=== PATIENT | female | born 1995 | race Caucasian/White ===

== ENCOUNTER → 2022-12-13 | Outpatient (CLI) | payer MEDICAID, SELFPAY | END | disposition home or self-care (01) | LOC: LABSPEC 15:38 | PROVIDERS: PCP Family Medicine; Referring Provider Obstetrics & Gynecology; Visit Provider Obstetrics & Gynecology | DX: O09.90 Supervision of high risk pregnancy, unspecified, unspecified trimester (principal); Z3A.00 Weeks of gestation of pregnancy not specified | CPT/HCPCS: 87086; 87088 ==

== ENCOUNTER → 2023-01-09 | Outpatient (CLI) | payer MEDICAID, SELFPAY ==
[2023-01-09 14:43] LABS: Absolute Lymphocyte Count 2.55 X10^3/uL (0.83-4.51); Absolute Neutrophil Count 6.2 X10^3/uL (2.0-7.7); Basophil# 0.03 X10^3/uL; Basophil% 0.3 % (0-1); Eosinophil# 0.07 X10^3/uL; Eosinophils% 0.7 % (0-5); Hematocrit 33.5 % (37-47); Hemoglobin 10.7 g/dL (12.0-15.0); Lymphocyte # 2.55 X10^3/ul (0.83-4.51); Lymphocyte % 26.9 % (19-41); Mean Corp Hgb Conc 31.9 g/dL (32-36); Mean Corpuscular Hgb 26.3 pg (27.0-32.0); Mean Corpuscular Volume 82.3 fL (81-99); Mean Platelet Vol. 10.2 fl (6.2-12.0); Monocyte% 6.3 % (0-10); NRBC Flagged by Analyzer 0 % (0-5); Neutrophil # 6.22 X10^3/uL (2.7-7.7); Neutrophil % 65.6 % (47-70); Platelet Count 269 K/mm3 (150-450); RBC Distribution Width SD 41.8 fl (35.1-43.9); Red Blood Count 4.07 M/mm3 (4.2-5.4); White Blood Count 9.5 K/mm3 (4.4-11.0)
[2023-01-09 15:12] LABS: Glucose Challenge Gest 1H 50g 136 mg/dL (70-140)
[2023-01-09 15:13] LABS: NATERA MAILED SPECIMEN
[2023-01-09 16:11] LABS: HIV - WCH Non-Reactive (Nonreactive); Hepatitis B Surface Antigen Non-Reactive (Nonreactive); Hepatitis C Antibody Non-Reactive (Nonreactive); Rubella IgG Reactive (Nonreactive); Syphilis Antibodies Non-reactive
[2023-01-11 21:07] LABS: Chlamydia By Nucleic Acid AMP Negative (Negative); Gonococcus By Nucleic Acid AMP Negative (Negative)
== END | disposition home or self-care (01) ==
PROVIDERS: Registered Nurse; PCP Family Medicine; Referring Provider Obstetrics & Gynecology; Visit Provider Obstetrics & Gynecology
DX: O09.90 Supervision of high risk pregnancy, unspecified, unspecified trimester (principal); Z3A.00 Weeks of gestation of pregnancy not specified
CPT/HCPCS: 36415; 82950; 85025; 86703; 86762; 86780; 86803; 86850; 86900; 86901; 87340; 87491; 87591

== ENCOUNTER → 2023-02-07 | Outpatient (CLI) | payer MEDICAID, SELFPAY ==
[2023-02-07 07:59] LABS: Absolute Lymphocyte Count 2.38 X10^3/uL (0.83-4.51); Absolute Neutrophil Count 5.7 X10^3/uL (2.0-7.7); Basophil# 0.03 X10^3/uL; Basophil% 0.3 % (0-1); Eosinophil# 0.07 X10^3/uL; Eosinophils% 0.8 % (0-5); Hematocrit 36.8 % (37-47); Hemoglobin 11.4 g/dL (12.0-15.0); Lymphocyte # 2.38 X10^3/ul (0.83-4.51); Lymphocyte % 27.3 % (19-41); Mean Corpuscular Hgb 25.9 pg (27.0-32.0); Mean Corpuscular Volume 83.6 fL (81-99); Mean Platelet Vol. 10.5 fl (6.2-12.0); Monocyte# 0.53 X10^3/uL; Monocyte% 6.1 % (0-10); NRBC Flagged by Analyzer 0 % (0-5); Neutrophil % 65.3 % (47-70); Platelet Count 289 K/mm3 (150-450); RBC Distribution Width CV 14.8 % (11.6-14.6); RBC Distribution Width SD 44.6 fl (35.1-43.9); White Blood Count 8.7 K/mm3 (4.4-11.0)
[2023-02-07 08:25] LABS: Glucose GTT-Gestation. Fasting 83 mg/dL (<105)
[2023-02-07 08:48] LABS: Ferritin 7 ng/mL (8-252); Iron 42 ug/dL (50-170); Iron Binding Capacity,Total 528 ug/dL (250-450)
[2023-02-07 08:54] LABS: Vitamin B12 255 pg/mL (211-911)
[2023-02-07 09:21] LABS: Glucose GTT-Gestational 1 Hr 126 mg/dL (<190)
[2023-02-07 10:09] LABS: Glucose GTT-Gestational 2 Hr 109 mg/dL (<165)
[2023-02-07 11:21] LABS: Glucose GTT-Gestational 3 Hr 111 L (<145)
== END | disposition home or self-care (01) ==
LOC: LAB 06:58
PROVIDERS: Obstetrics & Gynecology; PCP Family Medicine; Referring Provider Registered Nurse; Visit Provider Registered Nurse
DX: D64.9 Anemia, unspecified (principal)
CPT/HCPCS: 36415; 82607; 82728; 82746; 82951; 82952; 83540; 83550; 85025

== ENCOUNTER → 2023-04-15 | Outpatient (CLI) | payer MEDICAID, SELFPAY ==
[2023-04-15 09:32] LABS: Absolute Lymphocyte Count 2.33 X10^3/uL (0.83-4.51); Absolute Neutrophil Count 7.6 X10^3/uL (2.0-7.7); Basophil# 0.03 X10^3/uL; Basophil% 0.3 % (0-1); Eosinophil# 0.04 X10^3/uL; Eosinophils% 0.4 % (0-5); Hematocrit 33.3 % (37-47); Lymphocyte # 2.33 X10^3/ul (0.83-4.51); Lymphocyte % 21.9 % (19-41); Mean Corpuscular Hgb 25.7 pg (27.0-32.0); Mean Corpuscular Volume 85.6 fL (81-99); Mean Platelet Vol. 10.5 fl (6.2-12.0); Monocyte# 0.64 X10^3/uL; NRBC Flagged by Analyzer 0 % (0-5); Neutrophil # 7.55 X10^3/uL (2.7-7.7); Neutrophil % 70.9 % (47-70); Platelet Count 290 K/mm3 (150-450); RBC Distribution Width CV 15.2 % (11.6-14.6); RBC Distribution Width SD 47.1 fl (35.1-43.9); Red Blood Count 3.89 M/mm3 (4.2-5.4); White Blood Count 10.6 K/mm3 (4.4-11.0)
[2023-04-15 09:52] LABS: Glucose Challenge Gest 1H 50g 124 mg/dL (70-140)
[2023-04-15 10:28] LABS: HIV - WCH Non-Reactive (Nonreactive); Syphilis Antibodies Non-reactive
== END | disposition home or self-care (01) ==
LOC: LAB 08:46
PROVIDERS: PCP Family Medicine; Referring Provider Obstetrics & Gynecology; Visit Provider Obstetrics & Gynecology
DX: O09.90 Supervision of high risk pregnancy, unspecified, unspecified trimester (principal); Z3A.00 Weeks of gestation of pregnancy not specified
CPT/HCPCS: 36415; 82950; 85025; 86703; 86780

== ENCOUNTER → 2023-05-29 | Outpatient (CLI) | payer MEDICAID, SELFPAY ==
--- NOTE | 2023-05-29 14:43 | US_ITS ---
STUDY: OBSTETRICAL ULTRASOUND - BIOPHYSICAL PROFILE REASON FOR EXAM: Female, 27 years old well being -- 32 weeks with growth US LMP: 10/13/22 PRIOR ULTRASOUND: None. TECHNIQUE: Transabdominal TECHNICAL QUALITY: Adequate. FINDINGS: There is a single intrauterine fetus. The fetus is in a cephalic presentation. There is demonstrated cardiac activity with a heart rate of 144 bpm. There is a normal amniotic fluid volume. The largest amniotic fluid pocket measures 7.6 cm. The amniotic fluid index (GEORGINA) is 17.8 cm. The placenta is posterior in location and is not low lying. There are Grade 1 placental changes. The cervix measures 6.1 cm in length. Age by LMP: 32 weeks, 4 days. DMITRIY by LMP: 07/20/2023. BIOPHYSICAL PROFILE: Breathing Movements (FBM): 2 Gross Body Movements (GBM): 2 Tone (FT): 2 Amniotic Fluid Volume (AFV): 2 TOTAL SCORE: IMPRESSION: Normal biophysical profile of 04/09. Electronically Signed: Adam Garcia MD at 17:29 EDT , STUDY: SECOND AND THIRD TRIMESTER OBSTETRICAL ULTRASOUND - LIMITED REASON FOR EXAM: Female, 27 years old well being -- 32 weeks with growth US LMP: 10/13/2022 PRIOR ULTRASOUND: None. TECHNIQUE: Transabdominal TECHNICAL QUALITY: Adequate. FINDINGS: There is a single intrauterine fetus. The fetus is in a cephalic presentation. There is demonstrated cardiac activity with a heart rate of 144 bpm. There is a normal amniotic fluid volume. The largest amniotic fluid pocket measures 7.6 cm. The amniotic fluid index (GEORGINA) is 17.8 cm. The placenta is posterior in location and is not low lying. There are Grade 1 placental changes. The cervix measures 6.1 cm in length. BIOMETRY: BPD: 8.3: 33 weeks, 1 days HC: 30.1: 33 weeks, 3 days AC: 27.9: 32 weeks, 0 days FL: 6.0: 31 weeks, 3 days Age by LMP: 32 weeks, 4 days. DMITRIY by LMP: 07/20/2023. age by current US: 32 weeks, 4 days. DMITRIY by current US: 07/20/2023. Estimated weight: 1898 grams, +/- 285 grams, 26 percentile. Gender: US/Biophysical Prof W/O Non Stres IMPRESSION: Single live fetus in a vertex presentation. survey not performed on this exam. Placenta is grade 1 and is not low-lying. Cervix is closed. age by current US: 32 weeks, 4 days. DMITRIY by current US: 07/20/2023. Estimated weight: 1898 grams, +/- 285 grams, 26 percentile. Electronically Signed: Adam Garcia MD at 17:27 EDT ,
== END | disposition home or self-care (01) ==
PROVIDERS: PCP Family Medicine; Referring Provider Obstetrics & Gynecology; Visit Provider Obstetrics & Gynecology
DX: O09.293 Supervision of pregnancy with other poor reproductive or obstetric history, third trimester (principal); Z3A.32 32 weeks gestation of pregnancy
CPT/HCPCS: 76816; 76819

== ENCOUNTER → 2023-06-07 | Outpatient (CLI) | payer MEDICAID, SELFPAY ==
[2023-06-07 14:20] LABS: Absolute Lymphocyte Count 3.25 X10^3/uL (0.83-4.51); Absolute Neutrophil Count 8.2 X10^3/uL (2.0-7.7); Basophil# 0.03 X10^3/uL; Basophil% 0.2 % (0-1); Eosinophil# 0.05 X10^3/uL; Eosinophils% 0.4 % (0-5); Hematocrit 38.7 % (37-47); Hemoglobin 12.1 g/dL (12.0-15.0); Lymphocyte # 3.25 X10^3/ul (0.83-4.51); Lymphocyte % 26.3 % (19-41); Mean Corp Hgb Conc 31.3 g/dL (32-36); Mean Corpuscular Hgb 27.9 pg (27.0-32.0); Mean Corpuscular Volume 89.2 fL (81-99); Mean Platelet Vol. 10.1 fl (6.2-12.0); Monocyte# 0.82 X10^3/uL; Monocyte% 6.6 % (0-10); NRBC Flagged by Analyzer 0 % (0-5); Neutrophil # 8.15 X10^3/uL (2.7-7.7); Neutrophil % 66.1 % (47-70); Platelet Count 261 K/mm3 (150-450); RBC Distribution Width SD 52.7 fl (35.1-43.9); Red Blood Count 4.34 M/mm3 (4.2-5.4); White Blood Count 12.4 K/mm3 (4.4-11.0)
== END | disposition home or self-care (01) ==
LOC: LAB 13:34
PROVIDERS: PCP Family Medicine; Referring Provider Obstetrics & Gynecology; Visit Provider Obstetrics & Gynecology
DX: D64.9 Anemia, unspecified (principal)
CPT/HCPCS: 36415; 85025

== ENCOUNTER → 2023-06-24 | Outpatient (CLI) | payer MEDICAID, SELFPAY ==
--- NOTE | 2023-06-24 13:54 | US_ITS ---
STUDY: SECOND AND THIRD TRIMESTER OBSTETRICAL ULTRASOUND - LIMITED REASON FOR EXAM: Female, 27 years old growth -- 36 weeks LMP: Unknown. PRIOR ULTRASOUND: 05/29/2023 TECHNIQUE: Transabdominal TECHNICAL QUALITY: Adequate. FINDINGS: There is a single intrauterine fetus. The fetus is in a cephalic presentation. There is demonstrated cardiac activity with a heart rate of 131 bpm. There is a normal amniotic fluid volume. The largest amniotic fluid pocket measures 5.9 cm. The amniotic fluid index (GEORGINA) is 17.8 cm. The placenta is posterior in location and is not low lying. There are Grade 1 placental changes. The cervix was not visualized BIOMETRY: BPD: 9 cm: 36 weeks, 3 days HC: 33.2 cm: 38 weeks, 0 days AC: 32.7 cm: 36 weeks, 4 days FL: 6.8 cm: 35 weeks, 1 days age by prior US: 36 weeks, 2 days. DMITRIY by prior US: 07/20/2023. age by current US: 36 weeks, 6 days. DMITRIY by current US: 07/16/2023. Estimated weight: 2895 grams, +/- 434 grams, 52 percentile. US/OB Limited With Biometrics IMPRESSION: Single live intrauterine at 36 weeks, 6 days by current ultrasound with DMITRIY of 07/16/2023. Heart rate 131 bpm. No suspicious sonographic findings, normal growth noted since the previous study Electronically Signed: Juan Manuel Ngo MD at 15:29 EDT ,
== END | disposition home or self-care (01) ==
LOC: US 13:54
PROVIDERS: PCP Family Medicine; Referring Provider Obstetrics & Gynecology; Visit Provider Obstetrics & Gynecology
DX: Z34.93 Encounter for supervision of normal pregnancy, unspecified, third trimester (principal); Z87.59 Personal history of other complications of pregnancy, childbirth and the puerperium
CPT/HCPCS: 76816

== ENCOUNTER → 2023-06-28 | Outpatient (CLI) | payer MEDICAID, SELFPAY | END | disposition home or self-care (01) | PROVIDERS: PCP Family Medicine; Visit Provider Obstetrics & Gynecology | DX: O09.90 Supervision of high risk pregnancy, unspecified, unspecified trimester (principal); Z3A.00 Weeks of gestation of pregnancy not specified | CPT/HCPCS: 87081 ==

== ENCOUNTER 2023-07-22 05:00 | Inpatient (IN) | payer MEDICAID, SELFPAY ==
[2023-07-22] VITALS (19 sets, daily range): BP systolic 99–150; BP diastolic 41–90; PULSE 68–103; RESP 14–20; TEMP 36.1–36.9; O2SAT 95–100; BMI 46.7
[2023-07-22] MEDS: Lactated Ringers 1,000 ML 999 ML IV (05:40)
[2023-07-22 05:49] LABS: Absolute Lymphocyte Count 2.22 X10^3/uL (0.83-4.51); Basophil# 0.04 X10^3/uL; Basophil% 0.4 % (0-1); Eosinophil# 0.07 X10^3/uL; Eosinophils% 0.7 % (0-5); Hematocrit 41.5 % (37-47); Hemoglobin 13.1 g/dL (12.0-15.0); Lymphocyte # 2.22 X10^3/ul (0.83-4.51); Mean Corp Hgb Conc 31.6 g/dL (32-36); Mean Corpuscular Hgb 28.2 pg (27.0-32.0); Mean Corpuscular Volume 89.4 fL (81-99); Mean Platelet Vol. 10.4 fl (6.2-12.0); Monocyte# 0.74 X10^3/uL; Monocyte% 7.3 % (0-10); NRBC Flagged by Analyzer 0 % (0-5); Neutrophil # 6.99 X10^3/uL (2.7-7.7); Neutrophil % 69.1 % (47-70); Platelet Count 259 K/mm3 (150-450); RBC Distribution Width CV 14.6 % (11.6-14.6); RBC Distribution Width SD 47.8 fl (35.1-43.9); Red Blood Count 4.64 M/mm3 (4.2-5.4); White Blood Count 10.1 K/mm3 (4.4-11.0)
[2023-07-22 06:25] LABS: Syphilis Antibodies Non-reactive
[2023-07-22] MEDS: Lactated Ringers 1,000 ML 150 ML IV (06:40)
[2023-07-22] MEDS: Acetaminophen 500 MG Tablet 1000 MG PO (06:50)
[2023-07-22] MEDS: Sodium Citrate/Citric Acid 30 ML UDC PO (06:50)
[2023-07-22] MEDS: Cefazolin 2 GM in 0.9% Normal Saline (100mL Bag) 100 ML IV (07:10)
--- NOTE | 2023-07-22 07:24 | HP.PCM_ITS ---
History and Physical Date of Admission: 07/22/23 Intake Vital Signs 05/17/2315:48 07/11/2315:06 07/19/2315:06 Height 5 ft 5 ft 5 ft Weight: 248 lb 8 oz BMI 48.5 BP 112/78 Intake Visit Reasons: 39 WK OB/NST Press Box Custodian Required: No Is patient in pain?: No Allergies Sulfa (Sulfonamide Antibiotics) Allergy (Mild, Verified 07/19/23 15:06) unknown Medications docosahexaenoic acid 200 mg capsule ( DHA) mg PO 11/29/22 [History Confirmed 07/19/23] ondansetron 4 mg disintegrating tablet 4 mg PO Q4H PRN nausea and vomiting #60 tabs 12/30/22 [Rx Confirmed 07/19/23] ferrous sulfate 142 mg (45 mg iron) tablet,extended release (Slow Fe) 142 mg PO DAILY #30 tabs 04/15/23 [Rx Confirmed 07/19/23] famotidine 20 mg tablet (Pepcid) 20 mg PO BID #60 tabs 05/01/23 [Rx Confirmed 07/19/23] Last Menstrual Period: 10/13/22 Zika: Zika virus screening: Negative : No PFSH PFSH Medical History Anemia Trisomy 13 of fetus Surgical History S/P S/P tonsillectomy Status post cardiac surgery Status post delivery Family History Grandfather Myocardial infarction Heart disease Social History adopted: No household members: spouse number of children: 1 current occupational status: employed current occupation: [employer] current occupational exposures/hazards: No pets and animals: Yes (avoid litter box) pets and animals: cat(s) and dog(s) history of recent travel: No sexually active: Yes Smoking Status: Never smoker alcohol intake: current alcohol intake frequency: holidays/special occasions only substance use type: does not use caffeine: No what type of physical activity do you participate in: walking frequency: 5-6 times per week seatbelt use: always do you feel safe at home: Yes additional social history: Boyfriend- Kenan History 2 Elective abortions Hx Para 2 Spontaneous abortions Hx # Term Pregnancies 1 Ectopic pregnancies Hx # Pregnancies 1 Multiple births # of living children 1 Past Pregnancies Del. Date Name GA/Weeks Outcome Route Bth Weight Infant Gen Labor Lgth Anesthesia Del Locatn Provider FOB 02/14/20 [place] 34 still Male [facility] Kenan 08/30/21 [place] 39 live - full term Fem soraya 20 hours Tolu [facility] Delivery Date: 02/14/20 Last Updated by: Deisy Hurtado Trisomy 13 Delivery Date: 08/30/21 Last Updated by: Deisy Hurtado No issues with or delivery. Per patient she was in labor for 20 hours at 5cm, delivery doctor decided on csection. HPI 39 WK OB/NST Details: HERVE GIBBS is a 27 year old @ 40 weeks 2 days who presents for a repeat section. OB Visit DMITRIY Calculator Estimated Delivery Date Method Current WG Current Estimate 07/20/23 LMP (Certain) 39w 6d Expected Delivery Route/Plan TOLAC patient counseled regarding risks/benefits of trial of labor versus repeat . ACOG/uptodate education given to patient. 44% likelihood of success per calculator TOLAC consent form signed: signed Labor Preferences- CB/BF classes: [] labor support person: [] labor intervention preferences: [] pain management options preferred: [] cut cord/dad catch: [] : [] PP control planned: [] discussed possible routes of delivery and associated risks: [] special requests: [] Specific Issue/Plans Covid status: declined Flu vaccine: declined Tdap vaccine: declined Rhogam: declined LARC form signed: declined movement and labor precautions reviewed. Problem list reviewed and updated with the most current plan of care details and appropriate orders placed. Relevant counseling for the gestational age provided. Continue routine care and follow up unless otherwise noted in visit notes/problem list details Initial Weight: Not Recorded Date -?-?-?-?-?-?-?-?-?-?-?-?- EGA Weight BP Urine Prot -?-?-?-?-?-?-?-?-?-?-?-?- Glucose FHR FuHt Pres Dilation -?-?-?-?-?-?-?-?-?-?-?-?- Effaced St Visit Note 12/13/22-?-?-?-?-?-?-?-?-?-?-?-?- 8w 5d 204 lb 6 oz 126/76 -?-?-?-?-?-?-?-?-?-?-?-?- 160 -?-?-?-?-?-?-?-?-?-?-?-?- SM- no vb cramping had dating US prior to today and was consistent 01/09/23-?-?-?-?-?-?-?-?-?-?-?-?- 12w 4d 232 lb 2 oz 118/76 Negative -?-?-?-?-?-?-?-?-?-?-?-?- Negative 156 -?-?-?-?-?-?-?-?-?-?-?-?- LC- no vb/cramping. discussed and declines afp. 02/04/23-?-?-?-?-?-?-?-?-?-?-?-?- 16w 2d 228 lb 8 oz 125/76 -?-?-?-?-?-?-?-?-?-?-?-?- 150 -?-?-?-?-?-?-?-?-?-?-?-?- SM- no vb cramping SM- no vb cramping, discussed checking extra vitamin deficiencies due to anemia 03/06/23-?-?-?-?-?-?-?-?-?-?-?-?- 20w 4d 229 lb 4 oz 121/69 Negative -?-?-?-?-?-?-?-?-?-?-?-?- Negative 153 -?-?-?-?-?-?-?-?-?-?-?-?- JV- no lof, vaginal bleeding. no complaints. we talked more today about end of expectations. if no spontaneous labor pt does not want induction. 04/03/23-?-?-?-?-?-?-?-?-?-?-?-?- 24w 4d 230 lb 2 oz 119/79 Negative -?-?-?-?-?-?-?-?-?-?-?-?- Negative 150 25 -?-?-?-?-?-?-?-?-?-?-?-?- JV- no lof, vaginal bleeding, or dec fm. lots of discussion about prior section. 05/01/23-?-?-?-?-?-?-?-?-?-?-?-?- 28w 4d 235 lb 2 oz 122/66 Negative -?-?-?-?-?-?-?-?-?-?-?-?- Negative 144 28 -?-?-?-?-?-?-?-?-?-?-?-?- JV- normal glucola. taking iron supplements. needs something for indigestion. declines tdap. 05/08/23-?-?-?-?-?-?-?-?-?-?-?-?- 29w 4d 236 lb 2 oz 114/74 Negative -?-?-?-?-?-?-?-?-?-?-?-?- Negative 145 -?-?-?-?-?-?-?-?-?-?-?-?- LC- NST for decreased movement. seen at [facility]. FHR 130 with questionable cord around neck with concerned pt. cord appears loosely around neck in image with fluid surrounding. reassurance provided. now with active movement. 05/17/23-?-?-?-?-?-?-?-?-?-?-?-?- 30w 6d 236 lb 2 oz 92/54 Negative -?-?-?-?-?-?-?-?-?-?-?-?- Negative 145 32 -?-?-?-?-?-?-?-?-?-?-?-?- SM- no vb lof good fm no reuglar ctx discussed screening and kick counts 05/31/23-?-?-?-?-?-?-?-?-?-?-?-?- 32w 6d 238 lb 4 oz 109/69 Negative -?-?-?-?-?-?-?-?-?-?-?-?- Negative 145 34 -?-?-?-?-?-?-?-?-?-?-?-?- SM- nl growth and bpp SM- nl growth and bpp no vb cramping 06/13/23-?-?-?-?-?-?-?-?-?-?-?-?- 34w 5d 242 lb 4 oz 108/80 -?-?-?-?-?-?-?-?-?-?-?-?- 140 -?-?-?-?-?-?-?-?-?-?-?-?- SM- no vb lof good fm no regular ctx 06/19/23-?-?-?-?--?-?-?-?-?-?-?-?- 35w 4d 242 lb 2 oz 108/72 Negative -?-?-?-?-?-?-?-?-?-?-?-?- Negative 145 -?-?-?-?-?-?-?-?-?-?-?-?- MH-No VB, lof. Good FM. Reactive NST. 06/28/23-?-?-?-?-?-?-?-?-?-?-?-?- 36w 6d 245 lb 4 oz 111/74 Negative -?-?-?-?-?-?-?-?-?-?-?-?- Negative 130 36 0-?-?-?-?-?-?-?-?-?- ?-?-?- JV- nst reactive. plan for delivery at 40 weeks 3 days. plan to schedule for cs and if favorable for induction will plan IOL. JV- nst reactive. plan for delivery at 40 weeks 3 days. plan to schedule for cs and if favorable for induction will plan IOL. growth 52nd% 07/04/23-?-?-?-?-?-?-?-?-?-?-?-?- 37w 5d 247 lb 2 oz 101/58 Negative -?-?-?-?-?-?-?-?-?-?-?-?- Negative 140 37 0.5-?-?-?-?-?-?-?-?- ?-?-?-?- SM- plan for LTCS if no active labor prior to labor. note sent to scheduling no vb lof good fm 07/11/23-?-?-?-?-?-?-?-?-?-?-?-?- 38w 5d 248 lb 4 oz 113/75 -?-?-?-?-?-?-?-?-?-?-?-?- 130 0.5-?-?-?-?-?-?-?-?-?-?-?-?- SM- discussed LTCS to be scheduled earlier if desired because no cervical change, likelihood of spontaneous labor and low. ACOG First Trimester First Trimester: Desire for , Alcohol, Tobacco Cessation, Illicit/Recreational Drug/Substance Use, Intimate Partner Violence, Barriers to care, Unstable Housing, Communication Barriers, Environmental/Work Hazards, Anticipated Course of Care, Toxoplasmosis Precations, Use of Any medications, Sexual activity, Exercise, Dental Care, Sauna/Hot tub use, Seat Belt use, Childbirth classes/Hospital facilities, , Travel, Indications for Ultrasound and Screening for Aneuploidy Second Trimester Second Trimester: Signs and Symptoms of Labor, Selecting a care provider, Reproductive Life Planning & Contreception, Care Planning, Depression/Anxiety and Intimate Partner Violence; Discussed Tobacco Cessation Third Trimester Third Trimester: Pain Management Plans, Labor support person(s), Immediate Larc, Movement Monitoring, Signs and Symptoms of Preeclampsia and [place] [employer] Coding Diagnoses Iron deficiency anemia due to chronic blood loss D50.0 Anemia type: iron deficiency Iron deficiency anemia type: chronic blood loss Elevated glucose R73.09 Previous child with Trisomy, antepartum O09.299 S/P Z98.891 Depression affecting O99.340; F32.A Supervision of high risk , antepartum O09.90 39 weeks gestation of Z3A.39 Weeks of gestation: 39 weeks History of stillbirth Z87.59 Obesity due to excess calories without serious comorbidity, unspecified classification E66.09 Obesity type: due to excess calories Obesity classification: unspecified obesity classification Serious obesity comorbidity presence: without serious comorbidity Assessment and Plan Assessment and Plan (1) Anemia: Status: Acute Qualifiers: Anemia type: iron deficiency Iron deficiency anemia type: chronic blood loss Qualified Code(s): D50.0 - Iron deficiency anemia secondary to blood loss (chronic) Comment: repeat CBC in 4 weeks, Vitamin testing ordered (2) Elevated glucose: Status: Acute Comment: 3 hour GCT ordered.- normal 3 hour (3) Previous child with Trisomy, antepartum: Status: Acute Comment: NIPT low risk (4) S/P : Status: Acute Comment: x1 44% success. plan . 1 previous . 36 week growth wants cs or iol at 40 weeks 3 days if no labor. RLTCS scheduled for 07/26 @ 7:30 with SM (5) Depression affecting : Status: Acute Comment: stable-has counselor - not on medication (6) Supervision of high risk , antepartum: Status: Acute Comment: PRR DMITRIY 07/20/23, PC: Chidi (stillbirth)Safia, BF: Blayne (7) : Status: Acute Qualifiers: Weeks of gestation: 39 weeks Qualified Code(s): Z3A.39 - 39 weeks gestation of Comment: low risk NIPT, Nml anatomy, nl growth 36wk (8) History of stillbirth: Status: Acute Comment: first -Trisomy 13-34 weeks, plan weekly nsts from 32 on (9) Obesity: Status: Acute Qualifiers: Obesity type: due to excess calories Obesity classification: unspecified obesity classification Serious obesity comorbidity presence: without serious comorbidity Qualified Code(s): E66.09 - Other obesity due to excess calories Comment: BMI 44%. plan 1 TM GCT encouraged healthy weight gain, plan third trimester testing. Orders: Orders OB NST Today Z87.59 - Personal history of other complications of , childbirth and the puerperium
--- NOTE | 2023-07-22 08:03 | OP.PCM_ITS ---
Assessment & Plan (1) Anemia: QUALIFIERS: Anemia type: iron deficiency Iron deficiency anemia type: chronic blood loss Qualified Code(s): D50.0 - Iron deficiency anemia secondary to blood loss (chronic) COMMENT: repeat CBC in 4 weeks, Vitamin testing ordered (2) Elevated glucose: COMMENT: 3 hour GCT ordered.- normal 3 hour (3) Previous child with Trisomy, antepartum: COMMENT: NIPT low risk (4) S/P : COMMENT: x1 44% success. plan . 1 previous . 36 week growth wants cs or iol at 40 weeks 3 days if no labor. RLTCS scheduled for 07/26 @ 7:30 with SM (5) Depression affecting : COMMENT: stable-has counselor - not on medication (6) Supervision of high risk , antepartum: COMMENT: PRR DMITRIY 07/20/23, PC: Chidi (stillbirth),Safia, BF: Blayne (7) : QUALIFIERS: Weeks of gestation: 39 weeks Qualified Code(s): Z3A.39 - 39 weeks gestation of COMMENT: low risk NIPT, Nml anatomy, nl growth 36wk (8) History of stillbirth: COMMENT: first -Trisomy 13-34 weeks, plan weekly nsts from 32 on (9) Obesity: QUALIFIERS: Obesity type: due to excess calories Obesity classification: unspecified obesity classification Serious obesity comorbidity presence: without serious comorbidity Qualified Code(s): E66.09 - Other obesity due to excess calories COMMENT: BMI 44%. plan 1 TM GCT encouraged healthy weight gain, plan third trimester testing. Maternal Data Information DMITRIY Calculator Estimated Delivery Date Method Current WG Current Estimate 07/20/23 LMP (Certain) 40w 2d Details Operative Information Date of Procedure: 07/22/23 Pre-Operative Diagnosis: 27 Y/O @ 40 WEEKS 2 DAYS, PRIOR SECTION, DESIRES REPEAT Post-Operative Diagnosis: 27 Y/O @ 40 WEEKS 2 DAYS, PRIOR SECTION, DESIRES REPEAT Indications for : Repeat Elective Classification: Scheduled Procedure Type: low transverse assembler billiard table #1: Jonathan Haskins Type of Anesthesia: Spinal Antibiotic Given: Ancef 2 grams IV x1 Estimated Blood Loss: 400cc Findings Description of Procedure: The patient is a 27 y/o @ 40 weeks 2 days who presented for repeat C- section. Spinal anesthesia was placed without difficulty. Chery catheter was placed. The patient was placed in the dorsal supine position with leftward tilt. Patient was prepped and draped in the normal sterile fashion. Pfannenstiel skin incision was made with the scalpel and carried through to the underlying layer of fascia with the scalpel. Fascia was nicked in the midline and the incision extended laterally. The rectus bellies were dissected off superiorly and inferiorly with out complication both sharply and bluntly. The peritoneum was entered digitally. The incision was stretched and a low transverse uterine incision was made with the scalpel. The 's head was delivered atraumatically followed by the anterior and posterior shoulders without complication the rest of the delivered. The cord was clamped and cut and the was handed off to awaiting nurse. The placenta was delivered spontaneously immediately following and was noted to be intact and have a three- vessel cord. The uterus was exteriorized cleared of all clots and debris, and the incision was closed in a double layer closure using #1 vicryl and #1 Monocryl. The ovaries and fallopian tubes were noted to be within normal limits. The uterus was returned to the maternal abdomen and gutters were cleared of all clots and debris. The peritoneum was closed with 3-0 Monocryl in a running fashion. Fascia was closed with 0 PDS in a running fashion. Subcutaneous tissue was copiously irrigated and the skin was closed with 3-0 Monocryl in a subcuticular fashion. Mepilex dressing was applied without complication. Patient was taken to recovery in stable condition. It was discussed with the patient that based on the clinical information obtained during this encounter, combined with her history, at this time I would recommend repeat section for future deliveries if further pregnancies are desired. Amniotic Membrane Rupture Type: Artificial Amniotic Fluid Description: Lightly stained meconium Placental Delivery Description: Manual Removal Placenta Disposition: [facility] Cord Vessel Description: 3 Vessels Cord Entanglement: None A Gender: Female (1 minute): 9 (5 minute): 10 Delayed Cord Clamping: Yes Complications Risks of Surgery Discussed w/Patient: Bleeding, Anesthesia Risks, Infection, Need for Future C-Sections and Injury to surrounding structure(s) including bowel and bladder Multi Select Codes Urinary/Genital Urinary/Genital CPT Codes: 17556 delivery+ Care([facility])
--- NOTE | 2023-07-22 08:06 | DCINST_ITS ---
Discharge Instructions Diet Discharge Diet: No restrictions Activity Discharge Activity: May Not Drive (for 2 weeks or while taking narcotic pain medications.), May Shower and May Take a Tub Bath (in 7 days.) May resume sexual activity in: 4-6 weeks Weight Bearing Status: Full weight bearing Lifting Restrictions: 20 pounds Dressing / Incision Call your doctor if your incision/area has: Continuous Slow Oozing, Sudden Increased Bleeding, Increased Pain/ Swelling, Increased Redness and Foul Smelling Discharge Call your doctor if you observe: Fever of 101 or Higher and Using more than 1 pad per hour Suture Line Care: Avoid Pulling/Pushing and Avoid Pinching/Bending Cleanse incision/area with: Soap & Water and Keep Dressing Clean & Dry Follow Up Care Please Follow Up With: Katey Farmer DO When: Call [phone] to make an appointment for an incision check in 1-2 weeks. Test Results: Test results from this visit will be discussed in further detail at your follow- up appointment, if applicable. Discharge Plan Admission Admit Date/Time: 07/22/23 05:00 Primary Reason for Your Visit: repeat section Attending Provider: Katey Farmer Primary Care Provider: Lior Flores Discharge Orders/Prescriptions Prescriptions: New oxycodone 5 mg/5 mL solution 5 mg PO Q4H PRN (Reason: pain) 7 Days Qty: 120 0RF Continued DHA 200 mg capsule PO famotidine [Pepcid] 20 mg tablet 20 mg PO BID Qty: 60 4RF ondansetron 4 mg tablet,disintegrating 4 mg PO Q4H PRN (Reason: nausea and vomiting) Qty: 60 2RF Slow Fe 142 mg (45 mg iron) tablet extended release 142 mg PO DAILY Qty: 30 4RF Referrals / Follow Up: Lior Flores MD [Primary Care Provider] - Disposition Disposition (needs filled in before D/C Order can be placed): Home, Self Care
[2023-07-22] MEDS: Oxytocin 15 Units/NS 250ml 15 UNITS/250 ML IV.SOLN 83 UNITS IV (08:30)
[2023-07-22] MEDS: Ketorolac 30 MG/ML Syringe IV ×3 (08:59→20:51)
[2023-07-22] MEDS: 0.9% Saline Lock 10 ML Syringe IV ×4 (09:02→21:04)
[2023-07-22] MEDS: proCHLORPERazine 10 MG/2 ML Vial IV (09:02)
[2023-07-22] MEDS: HYDROmorphone 1 MG/ML Syringe IV ×4 (09:32→20:50)
[2023-07-22] MEDS: Lactated Ringers 1,000 ML 100 ML IV (11:18)
[2023-07-22] MEDS: Acetaminophen 650 MG/20 ML UDC PO ×2 (13:04→18:50)
[2023-07-23] MEDS: Acetaminophen 650 MG/20 ML UDC PO ×3 (01:16→13:11)
[2023-07-23] MEDS: SimETHICONE 80 MG Chewable Tablet PO ×3 (01:20→09:53)
[2023-07-23] MEDS: Ibuprofen 100 MG/5 ML UDC 600 MG PO ×2 (02:46→08:59)
[2023-07-23 03:05] VITALS: BP 123/54; PULSE 83; RESP 16; TEMP 36.6; O2SAT 98
[2023-07-23 06:38] LABS: Hematocrit 38.6 % (37-47); Hemoglobin 12.2 g/dL (12.0-15.0); Mean Corp Hgb Conc 31.6 g/dL (32-36); Mean Corpuscular Hgb 28.8 pg (27.0-32.0); Mean Platelet Vol. 10.1 fl (6.2-12.0); Platelet Count 245 K/mm3 (150-450); RBC Distribution Width CV 14.9 % (11.6-14.6); RBC Distribution Width SD 49.9 fl (35.1-43.9); Red Blood Count 4.24 M/mm3 (4.2-5.4); White Blood Count 11.7 K/mm3 (4.4-11.0)
--- NOTE | 2023-07-23 07:35 | PCM.PN.OB ---
Subjective Subjective Patient doing well without complaints. Tolerating PO. Ambulating and voiding without difficulty. Feeding well. Denies chest pain, shortness of breath, calf pain/swelling, fevers, chills, lightheadedness. Objective Data Objective Data Vital Signs: Vital Signs Temp Pulse Resp BP Pulse Ox O2 Del Method 97.8 F 83 16 123/54 H 98 Room Air 07/23/23 03:05 07/23/23 03:05 07/23/23 03:05 07/23/23 03:05 07/23/23 03:05 07/23/23 03:05 Oxygen Delivery Method Room Air Weight: 247 lb 9.6 oz Body Mass Index (BMI) 46.7 Intake & Output: Intake and Output for Last 24 Hours 07/21/23 07/22/23 07/23/23 23:59 23:59 23:59 Intake Total 2541.11 / 2541.11 Output Total 2850 / 2850 Balance -308.89 / -308.89 Lab / Micro Data Attestation: I reviewed the patient's lab results. 07/23/23 05:12 Labs: Laboratory Results - last 24 hr 07/22/23 05:40: Blood Type A POSITIVE, Antibody Screen NEGATIVE 07/23/23 05:12: WBC 11.7 H, RBC 4.24, Hgb 12.2, Hct 38.6, MCV 91.0, MCH 28.8, MCHC 31.6 L, RDW Std Deviation 49.9 H, RDW Coeff of Augustina 14.9 H, Plt Count 245, MPV 10.1 ROS Constitutional Constitutional: Reports systems reviewed and no addt'l complaints, except as documented; Denies anorexia or headache(s) Cardiovascular Cardiovascular: Reports systems reviewed and no addt'l complaints, except as documented; Denies dizziness, dyspnea, nausea or tachypnea Respiratory/Chest Respiratory/Chest: Reports systems reviewed and no addt'l complaints, except as documented; Denies cough, dyspnea, shortness of breath at rest or tachypnea Gastrointestinal Gastrointestinal: Reports systems reviewed and no addt'l complaints, except as documented; Denies abdominal pain, constipation or nausea Genitourinary Genitourinary: Reports systems reviewed and no addt'l complaints, except as documented; Denies burning urination, difficulty urinating, dysuria, urinary frequency or urinary incontinence Musculoskeletal Musculoskeletal: Reports systems reviewed and no addt'l complaints, except as documented Integumentary Integumentary: Reports systems reviewed and no addt'l complaints, except as documented Neurologic Neurologic: Reports systems reviewed and no addt'l complaints, except as documented; Denies abnormal speech, dizziness or headache(s) Psychiatric Psychiatric: Reports systems reviewed and no addt'l complaints, except as documented Endocrine Endocrinology: Reports systems reviewed and no addt'l complaints, except as documented Hematologic/Lymphatic Hematologic/Lymphatic: Reports systems reviewed and no addt'l complaints, except as documented Physical Exam Const alert, oriented x3 and no apparent distress Neck full ROM Resp normal respiratory effort, normal air movement and no retractions Effort and Inspection: able to speak in complete sentences and symmetric chest movement GI soft to palpation Inspection: incision intact Bladder / Kidney Exam: bladder normal to palpation Uterus Palpation: uterus fundus firm Extremity normal to inspection and full ROM Psych mental status grossly normal, thought process normal and cooperative Charges/Coding Multi Select Codes Urinary/Genital Urinary/Genital CPT Codes: No Charge
--- NOTE | 2023-07-23 07:36 | PCM.DC ---
Discharge Instructions Diet Discharge Diet: No restrictions Activity Discharge Activity: Return to Normal Activity May resume sexual activity in: 4-6 weeks Weight Bearing Status: Full weight bearing Dressing / Incision Call your doctor if your incision/area has: Continuous Slow Oozing, Sudden Increased Bleeding, Increased Pain/ Swelling, Increased Redness and Foul Smelling Discharge Call your doctor if you observe: Fever of 101 or Higher and Using more than 1 pad per hour Suture Line Care: Avoid Pulling/Pushing and Avoid Pinching/Bending Cleanse incision/area with: Soap & Water and Keep Dressing Clean & Dry Follow Up Care Please Follow Up With: Katey Farmer, When: Please call the office to schedule your follow up appointment in 2 weeks and 6 weeks. If you had high blood pressure please call to schedule an appointment in 2 weeks. Test Results: Test results from this visit will be discussed in further detail at your follow-up appointment, if applicable. Discharge Plan Admission Admit Date/Time: 07/22/23 05:00 Primary Reason for Your Visit: repeat section Attending Provider: Katey Farmer Primary Care Provider: Lior Flores Discharge Orders/Prescriptions Prescriptions: New oxycodone 5 mg/5 mL solution 5 mg PO Q4H PRN (Reason: pain) 7 Days Qty: 120 0RF ibuprofen [Children's Ibuprofen] 100 mg/5 mL Suspension 600 mg PO Q6H PRN PRN (Reason: Pain Score 4-10) 7 Days Qty: 840 0RF simethicone 80 mg Tablet,Chewable 80 mg PO PCHS PRN (Reason: Indigestion/stomach pain) 2 Days Qty: 4 0RF acetaminophen 650 mg/20.3 mL Solution 650 mg PO Q6H 7 Days Qty: 568.4 0RF Continued DHA 200 mg capsule PO famotidine [Pepcid] 20 mg tablet 20 mg PO BID Qty: 60 4RF ondansetron 4 mg tablet,disintegrating 4 mg PO Q4H PRN (Reason: nausea and vomiting) Qty: 60 2RF Slow Fe 142 mg (45 mg iron) tablet extended release 142 mg PO DAILY Qty: 30 4RF Referrals / Follow Up: Lior Flores MD [Primary Care Provider] - Disposition Disposition (needs filled in before D/C Order can be placed): Home, Self Care
[2023-07-23 08:00] VITALS: BP 120/61; PULSE 81; RESP 16; TEMP 36.2; O2SAT 99
[2023-07-23] MEDS: oxyCODONE 5 MG Tablet PO (08:59)
[2023-07-23 13:00] VITALS: BP 115/70; PULSE 84; RESP 16
== END 2023-07-23 14:20 | disposition home or self-care (01) | DRG 540 ==
PROVIDERS: Obstetrics & Gynecology; Admitting Provider Obstetrics & Gynecology; PCP Family Medicine; Referring Provider Obstetrics & Gynecology; Visit Provider Obstetrics & Gynecology
PROC: 10D00Z1 Extraction of Products of Conception, Low, Open Approach (ICD-10-PCS; CPT 59514; principal; 2023-07-22 07:00)
DX: O34.211 Maternal care for low transverse scar from previous cesarean delivery (principal); E66.09 Other obesity due to excess calories; D50.0 Iron deficiency anemia secondary to blood loss (chronic); O99.214 Obesity complicating childbirth; Z37.0 Single live birth; O77.0 Labor and delivery complicated by meconium in amniotic fluid; O99.02 Anemia complicating childbirth; Z3A.40 40 weeks gestation of pregnancy; Z87.59 Personal history of other complications of pregnancy, childbirth and the puerperium
CPT/HCPCS: 59025; 59050; 85025; 85027; 86780; 86850; 86900; 86901; 99221; J7120; A4216; G0378; J2405

== ENCOUNTER → 2024-02-28 | Outpatient (CLI) | payer MEDICAID, SELFPAY ==
[2024-03-04 19:31] LABS: HPV Reflexed? NOT INDICATED
== END | disposition home or self-care (01) ==
PROVIDERS: PCP Family Medicine; Referring Provider Obstetrics & Gynecology; Visit Provider Obstetrics & Gynecology
DX: Z12.4 Encounter for screening for malignant neoplasm of cervix (principal)
CPT/HCPCS: 88175; G0145